=== PATIENT | female | born 1985 | race Caucasian/White ===

== ENCOUNTER → 2023-07-21 10:45 | Outpatient (BNV) | payer OTHER, SELFPAY | PROVIDERS: Visit Provider Psychiatry & Neurology Psychiatry | DX: F32.2 Major depressive disorder, single episode, severe without psychotic features (principal) | CPT/HCPCS: 90792 ==

== ENCOUNTER 2023-08-03 10:00 | Outpatient (RCR) | payer OTHER, SELFPAY ==
[2023-07-20 12:56] VITALS: BP 97/75; PULSE 73; TEMP 36.6
[2023-07-20 13:07] VITALS: BMI 49.1
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
--- NOTE | 2023-07-21 13:24 | PC.NURSE ---
Addendum entered by Janine Morales RN 07/21/23 15:05: Spoke to Cristiana LUCAS from patient's PCP's office of Dr Darell Valencia whom patient has a 3:45 appointment with today 07/21/23 and reviewed the following information to review with the doctor. 1. Hx of fainting x2 in the past 2 weeks. 2. Hx of Grand Mal Seizures. 3. Taken off Lamictal 2 years ago. 4. Question medication side effects. 4. Question need for neurology consult. Original Note: I called patient's doctors office and left a message for them to call me back. Patient has an appointment today at 3:43 with her PCP. I gave patient a list of points to bring up with her doctor at her appointment with attached medication list. 1. Hx of fainting x2 in the past 2 weeks. 2. Hx of Grand Mal Seizures. 3. Taken off Lamictal 2 years ago. 4. Question medication side effects. 4. Question need for neurology consult.
[2023-07-21 13:32] VITALS: BP 100/75; PULSE 71
--- NOTE | 2023-07-21 16:55 | HO.PHP ---
Clients case was reviewed and opened today in treatment team.
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
--- NOTE | 2023-07-22 15:15 | PC.NURSE ---
See Dr Culver's note on 07/22/23 regarding patient's f/u appointment with her PCP on 07/21/23 regarding recent fainting episodes.
--- NOTE | 2023-08-02 16:02 | HO.PHP ---
[facility] staff followed up with Willow to see how she is doing since she presented sad within the last group. PHP staff left a VM encouraging her to contact the clinician back. PHP staff member is awaiting a call back.
== END 2023-08-03 23:59 | disposition home or self-care (01) ==
LOC: HO.PHPA 10:00
PROVIDERS: Visit Provider Psychiatry & Neurology Psychiatry
DX: F32.2 Major depressive disorder, single episode, severe without psychotic features (principal); Z79.899 Other long term (current) drug therapy
CPT/HCPCS: 90791; 90853

== ENCOUNTER 2024-11-01 19:36 | Inpatient (IN) | payer MEDICAID, SELFPAY ==
--- NOTE | ~2024-11-01 | XR_ITS ---
CLINICAL HISTORY: cough fever 2 view chest x-ray Comparison: None Findings: Left upper lobe and lingular consolidation. No pleural effusion. Heart size is normal. No acute fracture. IMPRESSION: Left lung probable pneumonia. This document has been electronically signed by: Jhony Brito MD on 11/02/2024 00:24:16
--- NOTE | ~2024-11-01 | US_ITS ---
CLINICAL HISTORY: Pneumonia , elevated LFTs evaluate for biliary dis US abdomen limited Comparison: None Findings: The visualized pancreas is normal. The aorta and inferior vena cava are normal caliber. The liver is normal in size and echotexture, with a uniformly echogenic rounded 10 mm lesion consistent with a hemangioma within the right lobe. There is no intrahepatic bile duct dilatation. The common duct is 5 mm in diameter. The gallbladder demonstrates mild wall thickening at 5 mm. Trace pericholecystic fluid. There is no sonographic Washington sign. The main portal vein is antegrade. The right kidney is 11.3 cm in length. 7 mm cyst noted. No ascites. IMPRESSION: Mild gallbladder wall thickening with trace pericholecystic fluid. No sonographic Washington's. No gallstone identified. If there is concern for acute cholecystitis, a HIDA may be helpful. Benign hepatic hemangioma. This document has been electronically signed by: Sebastián Sr MD on 11/02/2024 10:43:02
[2024-11-01 19:57] VITALS: BP 110/58; PULSE 70; RESP 20; TEMP 36.8; O2SAT 100; BMI 20.8
[2024-11-01 20:04] VITALS: BP 106/65; PULSE 99; O2SAT 99
[2024-11-01 21:25] LABS: Influenza A PCR NEGATIVE (Negative); Influenza B PCR NEGATIVE (Negative); Resp Syncy Virus RNA Qual PCR NEGATIVE (Negative); SARS COV2 PCR INHOUSE NEGATIVE (Negative)
--- NOTE | 2024-11-01 22:22 | ED.GENADULT ---
HPI - General Adult General Chief complaint: General Medical Stated complaint: flu like symptoms, dx pneumonia brenden,stiff neck Time Seen by Provider: 11/01/24 22:07 Related Data Home Medications ?Medication ?Instructions ?Recorded ?Confirmed alprazolam 0.5 mg tablet 0.5 mg PO Q8H PRN Sleep 07/20/23 11/02/24 dextroamphetamine-amphetamine ER 1 cap PO DAILY 07/20/23 11/02/24 20 mg 24hr capsule,extend release doxepin 25 mg capsule 25 mg PO BEDTIME 07/20/23 11/02/24 duloxetine 20 mg capsule,delayed 40 mg PO QAM 07/20/23 11/02/24 release dextromethorphan 20 mg-quinidine 1 cap PO BID 11/02/24 11/02/24 10 mg capsule (Nuedexta) Previous Rx's ?Medication ?Instructions ?Recorded azithromycin 250 mg tablet 250 mg PO DAILY 7 days #4 tabs 11/02/24 cefpodoxime 200 mg tablet 200 mg PO Q12H 7 days #14 tabs 11/02/24 ciprofloxacin 0.3 %-dexamethasone 4 drp otic (ears) Q12H 7 days #7.5 11/02/24 0.1 % ear drops,suspension mL magnesium 250 mg tablet 250 mg PO DAILY 4 days #4 tabs 11/02/24 Allergies Allergy/AdvReac Type Severity Reaction Status Date / Time codeine Allergy Vomiting Verified 11/01/24 19:59 promethazine [From Phenergan] AdvReac Restless Verified 07/20/23 13:20 legs PMFSH Past Medical History Medical History History of seizures History of head injury Migraines Fainting Surgical History H/O adenoidectomy Hx of tonsillectomy H/O tubal ligation History of appendectomy Social History Social History Household Members: Spouse Household Members Other:: 3 children Housing: House Do you presently have visiting nurse or other home services: No Patient Tobacco Use Status: Former Tobacco user e-Cigarette/Vaping Use: Currently Using Second Hand Smoke Exposure: No Substance Use Type: Marijuana service: No Physical Exam ED Vital Signs: Vital Signs - 24 hr 11/01/24 19:57 11/01/24 22:25 11/02/24 00:01 Temperature 98.2 F 98.5 F 99 F Pulse Rate 70 65 70 Respiratory Rate 20 20 20 Blood Pressure 110/58 L 104/54 L 109/67 Pulse Oximetry 100 98 97 Oxygen Delivery Method Room Air Room Air Room Air 11/02/24 01:19 11/02/24 04:05 11/02/24 05:05 Temperature 99.5 F 98.1 F Pulse Rate 70 69 71 Respiratory Rate 18 16 16 Blood Pressure 107/54 L 101/61 106/59 L Pulse Oximetry 98 99 99 Oxygen Delivery Method Room Air Room Air Room Air 11/02/24 08:22 Temperature 98 F Pulse Rate 75 Respiratory Rate 16 Blood Pressure 95/55 L Pulse Oximetry 99 Oxygen Delivery Method Room Air BMI result Body Mass Index 20.8 Medications Administered Generic Name Dose Route Start Last Admin Trade Name Freq PRN Reason Stop Dose Admin Acetaminophen/Butalbital/Caffeine 1 tab 11/02/24 20:05 11/03/24 12:20 Butalb/Acetamin/Caff 50/325/40 Tablet PO 1 tab Q4H PRN Administration Migraine Headache Amphetamine/Dextroamphetamine 20 mg 11/03/24 09:00 11/03/24 09:06 Dextroamphetamine/Amphetamine Xr 10 Mg Cap.Er.24h PO 20 mg DAILY BETO Administration Doxepin HCl 25 mg 11/02/24 21:00 11/02/24 21:42 Doxepin Hcl 25 Mg Capsule PO Not Given BEDTIME BETO Duloxetine HCl 40 mg 11/03/24 09:00 11/03/24 09:06 Duloxetine Hcl 20 Mg Capsule.Dr PO 40 mg DAILY BETO Administration Hydromorphone HCl 0.5 mg 11/02/24 15:39 11/03/24 11:56 Hydromorphone Hcl 0.5 Mg/0.5 Ml Syringe IVPUSH 0.5 mg Q4H PRN Administration Pain, Severe (Pain Scale 7-10) Protocol Levofloxacin 750 mg in 150 mls @ 100 mls/hr 11/03/24 08:00 11/03/24 10:47 Levaquin IV Infused Q24H BETO Infusion Metoclopramide HCl 10 mg 11/02/24 20:05 11/03/24 10:37 Metoclopramide Hcl 10 Mg/2 Ml Vial IVPUSH 10 mg Q4H PRN Administration Nausea and Vomiting Sodium Chloride 3 ml 11/02/24 16:00 11/03/24 09:05 0.9 % Sodium Chloride Flush 3 Ml Syringe IVFLUSH 3 ml QSHIFT BETO Administration Discontinued Medications Generic Name Dose Route Start Last Admin Trade Name Freq PRN Reason Stop Dose Admin Azithromycin 500 mg 11/02/24 00:31 11/02/24 00:39 Azithromycin 500 Mg Tablet PO 11/02/24 00:32 500 mg ONCE ONE Administration Ceftriaxone Sodium 1 gm 11/02/24 00:31 11/02/24 00:39 Ceftriaxone Sodium 1 Gm Vial IVPUSH 11/02/24 00:32 1 gm ONCE ONE Administration Diphenhydramine HCl 25 mg 11/02/24 11:13 11/02/24 11:24 Diphenhydramine Hcl 50 Mg/Ml Vial IVPUSH 11/02/24 11:14 25 mg ONCE ONE Administration Hydromorphone HCl 1 mg 11/02/24 08:02 11/02/24 08:26 Hydromorphone Hcl 1 Mg/Ml Syringe IVPUSH 11/02/24 08:03 1 mg ONCE STA Administration Protocol Hydromorphone HCl 1 mg 11/02/24 10:27 11/02/24 10:46 Hydromorphone Hcl 1 Mg/Ml Syringe IVPUSH 11/02/24 10:28 1 mg ONCE ONE Administration Protocol Sodium Chloride 1,000 mls @ 999 mls/hr 11/01/24 23:15 11/02/24 01:42 Ns IV 11/02/24 00:15 Infused .Q1H1M BETO Infusion Potassium Chloride/Sodium Chloride 20 meq in 1,000 mls @ 150 mls/hr 11/01/24 23:15 11/02/24 06:39 Kcl 20 Meq In 0.45% Sod IVCONT Infused .Q6H40M BETO Infusion Acetaminophen 1,000 mg in 100 mls @ 400 mls/hr 11/01/24 23:03 11/02/24 00:15 Ofirmev IV 11/01/24 23:17 Infused ONCE ONE Infusion Magnesium Sulfate 2 gm in 50 mls @ 25 mls/hr 11/01/24 23:08 11/02/24 01:53 Magnesium Sulfate/H2o IV 11/02/24 01:07 Infused ONCE ONE Infusion Levofloxacin 750 mg in 150 mls @ 100 mls/hr 11/02/24 08:05 11/03/24 09:15 Levaquin IV 11/02/24 09:34 Infused ONCE ONE Infusion Potassium Chloride/Sodium Chloride 40 meq in 1,000 mls @ 125 mls/hr 11/02/24 09:30 11/02/24 19:30 Kcl 40 Meq In 0.9 % Sodium Chl IV 11/02/24 17:29 Infused .Q8H BETO Infusion Lactated Ringer's 500 mls @ 500 mls/hr 11/02/24 22:45 11/03/24 01:40 Lr IV 11/02/24 23:44 Infused .Q1H BETO Infusion Ketorolac Tromethamine 15 mg 11/02/24 02:31 11/02/24 02:33 Ketorolac Tromethamine 15 Mg/Ml Vial IVPUSH 11/02/24 02:32 15 mg ONCE ONE Administration Metoclopramide HCl 10 mg 11/02/24 11:13 11/02/24 11:24 Metoclopramide Hcl 10 Mg/2 Ml Vial IVPUSH 11/02/24 11:14 10 mg ONCE ONE Administration Neomycin/Polymyxin/Hydrocortisone 3 drop 11/01/24 23:03 11/02/24 00:36 Neomycin/Polymyxin/Hc Otic Cristiane 10 Ml Drpbtl EAR-BOTH 11/01/24 23:04 Not Given ONCE ONE Ondansetron HCl 4 mg 11/01/24 23:03 11/01/24 23:48 Ondansetron Hcl 4 Mg/2 Ml Vial IVPUSH 11/01/24 23:04 4 mg ONCE ONE Administration Ondansetron HCl 4 mg 11/02/24 09:29 11/02/24 10:46 Ondansetron Hcl 4 Mg/2 Ml Vial IVPUSH 11/02/24 09:30 4 mg ONCE ONE Administration Medical Decision Making Medical Decision Making MDM Narrative: 39-year-old female with bilateral ear pain diagnosis of pneumonia starting about 2 days ago with cough malaise myalgias. She has some sharp upper back discomfort and generalized muscle aching. She has been nauseous with nonbloody nonbilious vomiting. She looks dehydrated and mildly pale and mildly ill but not toxic. She has a nonfocal neuro exam and a soft nontender abdomen. Her left ear is rather unremarkable including the TM however the right ear has tender slightly erythematous canal and a significant erythematous tympanic membrane. She has no dental pain mastoid tenderness or significant erythema or tenderness of the external ear structures. Her neck is soft there is no masses or lymphadenopathy. The patient was found to be hypokalemic initially 2.8 and hypomagnesemic. Both of these were initially repleted intravenously we have prescribed her oral electrolyte repletion for home. Patient was diagnosed 2 days ago with pneumonia she has been on Augmentin she has not had any improvement in her clinical respiratory symptoms but she is not hypoxic and has no labored breathing. I do not think this otherwise healthy patient needs admission but I will escalate her antibiotics to cefpodoxime and azithromycin 1st dose of cephalosporin and 500 mg azithromycin given here in the ED. Patient was hydrated and we will send her home after ED treatment closely PCP follow up ENT if needed 11/02/2024, ,Dr. Jeronimo Macedo's notes 08:06 I assumed care of this patient from my colleague, Dr. Ephraim Salas at 02:00 hours I re-evaluated the patient and she states she was not feeling better. She was having significant left-sided pleuritic chest pain. The patient's chest x-ray did reveal a significant left upper lobe/lingular consolidation which explains her chest pain. She was treated last night with Toradol with no significant relief for pain therefore I ordered Dilaudid 1 mg IV. My examination of the patient was ears I do not think that you has otitis externa and she may have left otitis media. I did discuss this with her and I do not think that she needs topical drops at this time. Patient did have a low potassium and low magnesium which was repleted IV. The patient also had significant elevation in her LFTs therefore I will order a right upper quadrant ultrasound. I am concerned that the patient might have Legionella. I will obtain repeat BMP, magnesium and also order blood cultures x2, lactic acid, Legionella studies. 09:33 Patient's magnesium normalized. Potassium improved to 3.0. My ordered normal saline with 40 mEq of potassium at 125 mL/hr to further replete her potassium. The patient did have an episode of vomiting when he was in the room and I ordered Zofran 4 mg IV. I did discuss the patient's presentation over tiger text with the covering hospitalist, physician certified anesthesiologist assistant [place] and the patient will be admitted to the hospitalist service for further treatment. Differential Diagnosis Pneumonia otitis media, otitis externa, mastoiditis, pleural effusion, empyema, electrolyte derangement, myalgia Admission/Observation Consideration of admission/observation: Escalation of care including admission/observation considered Lab Data 11/03/24 05:39 11/03/24 05:39 Labs: Lab Results 11/01/24 11/01/24 11/02/24 Range/Units 20:38 22:33 00:00 WBC 6.6 (4.8-10.8) X10*3/uL RBC 3.64 L (4.20-5.50) X10*6/uL Hgb 11.3 L (12.0-16.0) g/dl Hct 33.7 L (37.0-47.0) % MCV 92.6 (80.0-98.0) fL MCH 31.0 (27.0-33.0) pg MCHC 33.5 (31.0-35.0) g/dl RDW 12.7 (11.0-16.0) % Plt Count 206 (160-400) X10*3/uL MPV 9.8 (9.4-12.3) fL Immature Gran % (Auto) 0.6 H (0.0-0.4) % Neut % (Auto) 80.5 H (45-73) % Lymph % (Auto) 10.8 L (20-40) % [place] % (Auto) 5.9 (2-11) % Eos % (Auto) 1.7 (0-4) % Baso % (Auto) 0.5 (0-2) % Lymph # (Auto) 0.7 L (1.2-4.9) X10*3/uL [place] # (Auto) 0.4 (0.1-1.2) X10*3/uL Eos # (Auto) 0.1 (0.0-0.4) X10*3/uL Baso # (Auto) 0.0 (0.0-0.2) X10*3/uL Abs Immat Gran (auto) 0.04 H (0.00-0.03) X10*3/uL Absolute Neuts (auto) 5.4 (2.0-8.3) x10*3/uL Absolute Nucleated RBC 0.000 (0.0-0.012) X10*3/uL Nucleated RBC % (auto) 0.0 (0.0-0.2) /100WBC Sodium 143 (135-145) mmol/L Potassium 2.8 L* (3.3-5.1) mmol/L Chloride 110 H (96-108) mmol/L Carbon Dioxide 27 (22-29) mmol/L Anion Gap 9 L (12-20) BUN 7 L (9-16) mg/dL Creatinine 0.67 (0.5-1.4) mg/dL Estim Creat Clear Calc 84.2 Estimated GFR > 60 Random Glucose 111 (60-115) mg/dL Lactic Acid (0.5-2.0) mmol/L Calcium 8.5 (8.4-10.2) mg/dL Magnesium 1.5 L (1.6-2.6) mg/dL Total Bilirubin 0.4 (0.0-1.0) mg/dL AST 193 H (5-31) U/L ALT 292 H (0-31) U/L Alkaline Phosphatase 271 H (39-117) U/L Total Protein 5.9 L (6.5-8.0) g/dL Albumin 3.2 L (3.5-5.0) g/dL Urine Color Dark Yellow Urine Appearance Clear Urine pH 7.0 (5.0-9.0) Ur Specific [place] >= 1.030 H (1.005-1.025) Urine Protein 30 (1+) H (Neg-Trace) mg/dL Urine Glucose (UA) Negative (Negative) mg/dL Urine Ketones Trace (Negative) mg/dL Urine Blood Negative (Negative) Urine Nitrite Negative (Negative) Ur Leukocyte Esterase Trace H (Negative) Urine RBC 0-2 (0-2) /HPF Urine WBC 0-5 (0-5) /HPF Ur Squamous Epith Cells 0-2 (0-2) /HPF Calcium Oxalate Crystal Present Urine Bacteria None Seen (None Seen) Hyaline Casts 0-2 (0-2) /LPF Influenza Type A (PCR) NEGATIVE (Negative) Influenza Type B (PCR) NEGATIVE (Negative) RSV RNA Qual (PCR) NEGATIVE (Negative) SARS-CoV-2 RNA (RT-PCR) NEGATIVE (Negative) 11/02/24 Range/Units 08:39 WBC (4.8-10.8) X10*3/uL RBC (4.20-5.50) X10*6/uL Hgb (12.0-16.0) g/dl Hct (37.0-47.0) % MCV (80.0-98.0) fL MCH (27.0-33.0) pg MCHC (31.0-35.0) g/dl RDW (11.0-16.0) % Plt Count (160-400) X10*3/uL MPV (9.4-12.3) fL Immature Gran % (Auto) (0.0-0.4) % Neut % (Auto) (45-73) % Lymph % (Auto) (20-40) % [place] % (Auto) (2-11) % Eos % (Auto) (0-4) % Baso % (Auto) (0-2) % Lymph # (Auto) (1.2-4.9) X10*3/uL [place] # (Auto) (0.1-1.2) X10*3/uL Eos # (Auto) (0.0-0.4) X10*3/uL Baso # (Auto) (0.0-0.2) X10*3/uL Abs Immat Gran (auto) (0.00-0.03) X10*3/uL Absolute Neuts (auto) (2.0-8.3) x10*3/uL Absolute Nucleated RBC (0.0-0.012) X10*3/uL Nucleated RBC % (auto) (0.0-0.2) /100WBC Sodium 139 (135-145) mmol/L Potassium 3.0 L (3.3-5.1) mmol/L Chloride 111 H (96-108) mmol/L Carbon Dioxide 23 (22-29) mmol/L Anion Gap 8 L (12-20) BUN 7 L (9-16) mg/dL Creatinine 0.55 (0.5-1.4) mg/dL Estim Creat Clear Calc 102.6 Estimated GFR > 60 Random Glucose 101 (60-115) mg/dL Lactic Acid 1.7 (0.5-2.0) mmol/L Calcium 8.0 L (8.4-10.2) mg/dL Magnesium 2.0 (1.6-2.6) mg/dL Total Bilirubin (0.0-1.0) mg/dL AST (5-31) U/L ALT (0-31) U/L Alkaline Phosphatase (39-117) U/L Total Protein (6.5-8.0) g/dL Albumin (3.5-5.0) g/dL Urine Color Urine Appearance Urine pH (5.0-9.0) Ur Specific [place] (1.005-1.025) Urine Protein (Neg-Trace) mg/dL Urine Glucose (UA) (Negative) mg/dL Urine Ketones (Negative) mg/dL Urine Blood (Negative) Urine Nitrite (Negative) Ur Leukocyte Esterase (Negative) Urine RBC (0-2) /HPF Urine WBC (0-5) /HPF Ur Squamous Epith Cells (0-2) /HPF Calcium Oxalate Crystal Urine Bacteria (None Seen) Hyaline Casts (0-2) /LPF Influenza Type A (PCR) (Negative) Influenza Type B (PCR) (Negative) RSV RNA Qual (PCR) (Negative) SARS-CoV-2 RNA (RT-PCR) (Negative) Independent Interpretation I performed an independent interpretation of an: EKG Interpretation: Sinus rhythm, no ischemic changes Radiology Impression Discussion of test interpretation with radiology: I have reviewed the radiologist's reading. Independent Historian Clinical information obtained from an independent historian. History obtained from or confirmed by: Friend Critical Care Time Critical Care Time Critical Care Time: Yes Total Critical Care Time: 45 Attestation: Critical Care: The patient was critically ill with a high probability of imminent or life threatening deterioration. I spent greater than 30 minutes of discontinuous time evaluating the patient,delivering critical care at the bedside, discussing and evaluating pertinent data with consultants. Critical care time does not include time spent performing separately billable procedures or teaching. Total time spent performing critical care was 45 minutes. Discharge Plan Discharge Clinical Impression: Elevated liver function tests, Pleuritic chest pain Pneumonia Qualifiers: Pneumonia type: due to unspecified organism Laterality: left Lung location: upper lobe of lung Qualified Code(s): J18.9 - Pneumonia, unspecified organism Otitis media Qualifiers: Chronicity: acute Laterality: left Recurrence: non-recurrent Spontaneous tympanic membrane rupture: without spontaneous rupture Patient Disposition: Admitted As Inpatient Interventions: Admission Worksheet (ED) Last Done: 11/02/24 18:29 Discharge Date/Time: 11/02/24 20:59
[2024-11-01 22:25] VITALS: BP 104/54; PULSE 65; RESP 20; TEMP 36.9; O2SAT 98
[2024-11-01 22:39] LABS: MANUAL DIFF FLAG NO
[2024-11-01 22:40] LABS: Basophils Percent Auto 0.5 % (0-2); Eosinophils Absolute Auto 0.1 X10*3/uL (0.0-0.4); Eosinophils Percent Auto 1.7 % (0-4); Hematocrit 33.7 % (37.0-47.0); Hemoglobin 11.3 g/dl (12.0-16.0); Imm Gran Abs Auto 0.04 X10*3/uL (0.00-0.03); Imm Gran Pct Auto 0.6 % (0.0-0.4); Lymphocytes Absolute Auto 0.7 X10*3/uL (1.2-4.9); Lymphocytes Percent Auto 10.8 % (20-40); Mean Corpuscular HGB Conc 33.5 g/dl (31.0-35.0); Mean Corpuscular Volume 92.6 fL (80.0-98.0); Mean Platelet Volume 9.8 fL (9.4-12.3); Monocytes Absolute Auto 0.4 X10*3/uL (0.1-1.2); Monocytes Percent Auto 5.9 % (2-11); Neutrophils Absolute Auto 5.4 x10*3/uL (2.0-8.3); Neutrophils Percent Auto 80.5 % (45-73); Platelet Count 206 X10*3/uL (160-400); Red Blood Count 3.64 X10*6/uL (4.20-5.50); Red Cell Distribution Width 12.7 % (11.0-16.0); White Blood Count 6.6 X10*3/uL (4.8-10.8)
--- NOTE | 2024-11-01 23:03 | ECG_ITS ---
Test Reason : LOW POTASSIUM Blood Pressure : */* mmHG Vent. Rate : 66 BPM Atrial Rate : 66 BPM P-R Int : 172 ms QRS Dur : 72 ms QT Int : 388 ms P-R-T Axes : -2 62 52 degrees QTcB Int : 406 ms Normal sinus rhythm Normal ECG No previous ECGs available Referred By: Ephraim Augustine Electronically Signed By: NOEL ESPINOSA MD
[2024-11-01 23:06] LABS: Alanine Aminotransferase 292 U/L (0-31); Albumin Level 3.2 g/dL (3.5-5.0); Alkaline Phosphatase 271 U/L (39-117); Anion Gap 9 (12-20); Aspartate Amino Transferase 193 U/L (5-31); Bilirubin Total 0.4 mg/dL (0.0-1.0); Blood Urea Nitrogen 7 mg/dL (9-16); Calcium 8.5 mg/dL (8.4-10.2); Carbon Dioxide 27 mmol/L (22-29); Chloride 110 mmol/L (96-108); Creatinine Clr Calc Pharmacy 84.2; Estimated Glomerular Filt Rate > 60; Glucose Random 111 mg/dL (60-115); Magnesium 1.5 mg/dL (1.6-2.6); Potassium 2.8 mmol/L (3.3-5.1); Sodium 143 mmol/L (135-145); Total Protein 5.9 g/dL (6.5-8.0)
--- NOTE | 2024-11-01 23:27 | PC.NURSE ---
assumed care of pt at 23:15
[2024-11-01] MEDS: Magnesium Sulfate/H2O 2 GM/50 ML PIGGYBACK IV (23:48)
[2024-11-01] MEDS: ondansetron HCL 4 MG/2 ML VIAL IVPUSH (23:48)
[2024-11-01] MEDS: KCl 20 mEq in 0.45% Sod 20 MEQ/1,000 ML IV.SOLN 150 MEQ IVCONT (23:48)
[2024-11-01] MEDS: Acetaminophen 1,000 MG/100 ML PIGGYBACK 400 MG IV (23:48)
[2024-11-01] MEDS: 0.9 % Sodium Chloride 1,000 ML 999 ML IV (23:49)
[2024-11-02] VITALS (11 sets, daily range): BP systolic 95–114; BP diastolic 54–67; PULSE 69–105; RESP 14–20; TEMP 36.5–37.6; O2SAT 96–99
--- NOTE | 2024-11-02 | ECG_ITS ---
Test Reason : cp-repeat Blood Pressure : */* mmHG Vent. Rate : 64 BPM Atrial Rate : 64 BPM P-R Int : 170 ms QRS Dur : 66 ms QT Int : 422 ms P-R-T Axes : 7 49 26 degrees QTcB Int : 435 ms Normal sinus rhythm Normal ECG When compared with ECG of 01-Nov-2024 23:25, No significant change was found Referred By: Ephraim Augustine Electronically Signed By: NOEL ESPINOSA MD
[2024-11-02 00:12] LABS: Appearance Urine Clear; Color Urine Dark Yellow; Glucose Urine UA Negative (Negative); Leukocyte Esterase Urine Trace (Negative); Nitrite Urine Negative (Negative); Specific Gravity - Urine >= 1.030 (1.005-1.025); UMIC TRIGGER UACC YES; Urine Blood Negative (Negative); Urine Ketones Trace mg/dL (Negative); Urine Protein 30 (1+) mg/dL (Neg-Trace)
[2024-11-02 00:30] LABS: Bacteria Urine None Seen (None Seen); Calcium Oxalate Crystals Urine Present; Hyaline Casts Urine 0-2 /LPF (0-2); RBC Urine 0-2 /HPF (0-2); Squamous Epithelial Cell Urine 0-2 /HPF (0-2); WBC Urine 0-5 /HPF (0-5)
[2024-11-02] MEDS: cefTRIAXone sodium 1 GM VIAL IVPUSH (00:39)
[2024-11-02] MEDS: Azithromycin 500 MG TABLET PO (00:39)
[2024-11-02] MEDS: Ketorolac Tromethamine 15 MG/ML VIAL IVPUSH (02:33)
--- NOTE | 2024-11-02 05:32 | PC.NURSE ---
plan to discharge patient after potassium infusion is complete
[2024-11-02] MEDS: HYDROmorphone HCl 1 MG/ML SYRINGE IVPUSH ×2 (08:26→10:46)
--- NOTE | 2024-11-02 08:26 | PC.NURSE ---
Pt c/o left sided lung pain worse with deep breatg, also left ear pain. has been ambulatory w/o diff but moves slowly. Skin PWN. unlabored resp with ambulation and at rest.
[2024-11-02] MEDS: levoFLOXacin/D5W 750 MG/150 ML PIGGYBACK 100 MG IV (08:51)
[2024-11-02 09:06] LABS: Anion Gap 8 (12-20); Blood Urea Nitrogen 7 mg/dL (9-16); Carbon Dioxide 23 mmol/L (22-29); Chloride 111 mmol/L (96-108); Creatinine Clr Calc Pharmacy 102.6; Estimated Glomerular Filt Rate > 60; Glucose Random 101 mg/dL (60-115); Sodium 139 mmol/L (135-145)
[2024-11-02 09:07] LABS: Lactic Acid 1.7 mmol/L (0.5-2.0)
[2024-11-02] MEDS: ondansetron HCL 4 MG/2 ML VIAL IVPUSH (10:46)
--- NOTE | 2024-11-02 11:07 | PC.NURSE ---
dry heaving frequently. reglan requested by this RN.
--- NOTE | 2024-11-02 11:15 | PM.IMHP ---
History of Present Illness Date of Service: 11/02/24 Attending physician on admission: Dheeraj Cheema Chief Complaint: Cough, fever, malaise Pt is a 39-year-old female with a PMH significant for?migraines, seizure disorder no longer on meds, recurrent syncope, pseudobulbar affect, and mood disorder who presents to the ED with?multiple complaints, including fever, productive cough, myalgias, ear pain, and general malaise. Pt reports symptoms began last week on when she experienced headache, body aches, fever, chills, and a ?stuffy head?. Over the weekend pt developed migraines, bilateral ear pain, nausea, vomiting, and some diarrhea. Patient's highest temperature was a reported 104.7 at home. Pt took Tylenol and Motrin. On Tuesday pt presented to urgent care after symptoms continue to worsen and was diagnosed with pneumonia and bilateral otitis externa, and was started on azithromycin, cefpodoxime, and ciprofloxacin otic drops. Pt began taking p.o. antibiotics, but did not yet start ear drops. Despite being on antibiotics patient's symptoms worsened with increased SOB, nausea, and left-sided chest pain associated with breathing and cough, which prompted her visit to the ED. pt has had reduced p.o. intake during this time. Has a hx of vaping and smoking marijuana, but denies alcohol use or IVDU. Pt also states has not had a seizure since 2007, and is no longer on any medications In the ED pt with mildly elevated temp 99.5 and soft BP as low as 95/55. Labs were significant for normocytic anemia of 11.3/33.7, potassium 2.8, magnesium 1.7, AST 193, ALT 292, and alk-phos 271. No leukocytosis. Lactic acid WNL at 1.7. UA negative for UTI. Tested negative for flu, COVID, RSV. CXR showed left lung upper lobe and lingular consolidation likely pneumonia. RUQ abdominal U/S showed mild call bladder wall thickening without sonographic Washington's and no gallstone identified. Also showed benign hepatic hemangioma. EKG demonstrated normal sinus rhythm without evidence of significant ST elevations or depressions. Pt was treated with ondansetron, acetaminophen, ketorolac, hydromorphone, Mag sulfate, IVF, ceftriaxone, azithromycin, and levofloxacin. Pt will be admitted to the hospital for treatment and further evaluation of community-acquired pneumonia that failed outpatient therapy and requires IV antibiotics. Review of Systems Review of Systems: Negative except for that which is stated in the HPI. [facility] Medical History History of seizures History of head injury Migraines Fainting Surgical History H/O adenoidectomy Hx of tonsillectomy H/O tubal ligation History of appendectomy Social History Household Members: Significant Other, Family and Children Patient Tobacco Use Status: Former Tobacco user Smoked in Last 30 Days: No Use of substances other than those prescribed or required for medical reasons: No Advance Directives: No Advance Directives Information Provided: No Meds Allergies Allergy/AdvReac Type Severity Reaction Status Date / Time codeine Allergy Vomiting Verified 11/01/24 19:59 promethazine [From Phenergan] AdvReac Restless Verified 07/20/23 13:20 legs Active Medications: Current Medications Potassium Chloride/Sodium Chloride (Kcl 40 Meq In 0.9 % Sodium Chl) 40 meq in 1,000 mls @ 125 mls/hr IV .Q8H BETO Stop: 11/02/24 17:29 Home Medications ?Medication ?Instructions ?Recorded ?Confirmed ?Last Taken ?Type alprazolam 0.5 mg tablet 0.5 mg PO Q8H PRN Sleep 07/20/23 11/02/24 Unknown History dextroamphetamine-amphetamine ER 1 cap PO DAILY 07/20/23 11/02/24 07/20/23 07:00 History 20 mg 24hr capsule,extend release doxepin 25 mg capsule 25 mg PO BEDTIME 07/20/23 11/02/24 07/19/23 23:30 History duloxetine 20 mg capsule,delayed 40 mg PO QAM 07/20/23 11/02/24 07/20/23 07:00 History release 2 tabs dextromethorphan 20 mg-quinidine 1 cap PO BID 11/02/24 11/02/24 Unknown History 10 mg capsule (Nuedexta) Physical Exam Vital Signs and Narrative: Vital Signs: Last Vital Signs Temp 98 F 11/02/24 08:22 Pulse 90 11/02/24 10:20 Resp 18 11/02/24 10:20 BP 114/65 11/02/24 10:20 Pulse Ox 99 11/02/24 10:20 O2 Del Method Room Air 11/02/24 10:20 BMI result Body Mass Index 20.8 Constitutional: Alert, in no acute distress. Looks uncomfortable. Mental Status: Oriented to person, place and time. Eyes: Pupils are equal, round, and reactive to light. Ear, Nose, and Throat: Oropharynx clear, mucous membranes moist. External ear canals non-erythematous bilaterally. Left TM with some bulging and mild erythematous. No loss of landmarks. Respiratory: Clear to auscultation bilaterally. No wheezing, rales, or rhonchi. Cardiovascular: S1, S2 regular. No murmurs, rubs, or gallops. Gastrointestinal: Abdomen soft, non-distended, mild central tenderness. Normal bowel sounds. Neurologic: Cranial nerves II-XII are grossly intact bilaterally. No focal neurological deficits. Moves all extremities spontaneously. Skin: Warm, dry. Extremities: No edema. Psychiatric: Normal mood and affect. Results Labs 11/01/24 22:33 11/02/24 08:39 Labs: Laboratory Results - last 24 hr 11/01/24 11/01/24 11/02/24 20:38 22:33 00:00 MCV 92.6 MCH 31.0 MCHC 33.5 RDW 12.7 Plt Count 206 MPV 9.8 Immature Gran % (Auto) 0.6 H Neut % (Auto) 80.5 H Lymph % (Auto) 10.8 L Walker % (Auto) 5.9 Eos % (Auto) 1.7 Baso % (Auto) 0.5 Lymph # (Auto) 0.7 L Walker # (Auto) 0.4 Eos # (Auto) 0.1 Baso # (Auto) 0.0 Abs Immat Gran (auto) 0.04 H Absolute Neuts (auto) 5.4 Absolute Nucleated RBC 0.000 Nucleated RBC % (auto) 0.0 Anion Gap 9 L Estim Creat Clear Calc 84.2 Estimated GFR > 60 Random Glucose 111 Lactic Acid Calcium 8.5 Magnesium 1.5 L Total Bilirubin 0.4 AST 193 H ALT 292 H Alkaline Phosphatase 271 H Total Protein 5.9 L Albumin 3.2 L Urine Color Dark Yellow Urine Appearance Clear Urine pH 7.0 Ur Specific [place] >= 1.030 H Urine Protein 30 (1+) H Urine Glucose (UA) Negative Urine Ketones Trace Urine Blood Negative Urine Nitrite Negative Ur Leukocyte Esterase Trace H Urine RBC 0-2 Urine WBC 0-5 Ur Squamous Epith Cells 0-2 Calcium Oxalate Crystal Present Urine Bacteria None Seen Hyaline Casts 0-2 Influenza Type A (PCR) NEGATIVE Influenza Type B (PCR) NEGATIVE RSV RNA Qual (PCR) NEGATIVE SARS-CoV-2 RNA (RT-PCR) NEGATIVE 11/02/24 08:39 MCV MCH MCHC RDW Plt Count MPV Immature Gran % (Auto) Neut % (Auto) Lymph % (Auto) Walker % (Auto) Eos % (Auto) Baso % (Auto) Lymph # (Auto) Walker # (Auto) Eos # (Auto) Baso # (Auto) Abs Immat Gran (auto) Absolute Neuts (auto) Absolute Nucleated RBC Nucleated RBC % (auto) Anion Gap 8 L Estim Creat Clear Calc 102.6 Estimated GFR > 60 Random Glucose 101 Lactic Acid 1.7 Calcium 8.0 L Magnesium 2.0 Total Bilirubin AST ALT Alkaline Phosphatase Total Protein Albumin Urine Color Urine Appearance Urine pH Ur Specific [place] Urine Protein Urine Glucose (UA) Urine Ketones Urine Blood Urine Nitrite Ur Leukocyte Esterase Urine RBC Urine WBC Ur Squamous Epith Cells Calcium Oxalate Crystal Urine Bacteria Hyaline Casts Influenza Type A (PCR) Influenza Type B (PCR) RSV RNA Qual (PCR) SARS-CoV-2 RNA (RT-PCR) Assessment and Plan (1) Pneumonia: Qualifiers: Laterality: left Lung location: upper lobe of lung Pneumonia type: due to unspecified organism Qualified Code(s): J18.9 - Pneumonia, unspecified organism Status: Acute Plan Pt is a 39-year-old female with a PMH significant for?migraines, seizure disorder no longer on meds, recurrent syncope, pseudobulbar affect, and mood disorder who presents to the ED with?multiple complaints, including fever, productive cough, myalgias, ear pain, and general malaise. Pt will be admitted to the hospital for treatment and further evaluation of community-acquired pneumonia that failed outpatient therapy and requires IV antibiotics. Community-acquired pneumonia Symptoms x8 days, diagnosed w/pneumonia at walk-in clinic 4 days ago Failed outpatient therapy on azithromycin and cefpodoxime which were started 10/29/2024 No sepsis: Fever, tachycardia, tachypnea, or leukocytosis; lactic acid WNL Will treat with levofloxacin, started 11/02/2023 Hypokalemia Initial potassium 2.8 at time of presentation In the setting of reduced GI losses from V/D and reduced p.o. intake Pt supplemented with potassium IV in the ED Follow up potassium, supplement as necessary Monitor on telemetry Hypomagnesemia magnesium 1.5 at time presentation In the setting of reduced GI losses from V/D and reduced p.o. intake Received Mag 2 g IV in the ED Follow magnesium Transaminitis AST 193, ALT 292, alk-phos 271, with T bili WNL Unclear etiology: Denies RUQ abd pain, no IVDU, alcohol use, or hx of hepatitis US nondiagnostic with mild gallbladder wall thickening and trace pericholecystic fluid, but negative Washington's sign and no gallstones visualized Pt reports has chronically elevated LFTs in the upper normal range Possibly secondary to pneumonia Will monitor LFTs and consider additional workup if warranted Acute left otitis media Pt previously diagnosed with bilateral otitis externa Prescribed ciprofloxacin/dexamethasone otic drops which she has not yet started External ear canals without significant erythema bilaterally upon exam Left TM with mild bulging and erythema Treat as above with antibiotics Seizure disorder Reports had seizures from [id number] secondary to TBI No seizures since 2007, no longer on any home meds Mood disorder Continue home meds Full Code Attending:?Dr. Cheema DVT Prophylaxis: Lovenox Pt will require a hospitalization of at least two nights for treatment of?community acquired pneumonia that failed outpatient therapy and that IV antibiotics. Quality Stroke Does the patient have a stroke diagnosis?: No VTE Prior VTE?: No VTE Risk Level:: Medical - moderate - high VTE Device Contraindication: Treatment Not Indicated VTE Drug Contraindication: N/A - Med Ordered
[2024-11-02] MEDS: Metoclopramide HCl 10 MG/2 ML VIAL IVPUSH ×2 (11:24→20:20)
[2024-11-02] MEDS: diphenhydrAMINE HCL 50 MG/ML VIAL 25 MG IVPUSH (11:24)
[2024-11-02] MEDS: KCl 40 mEq in 0.9 % Sodium Chl 40 MEQ/1,000 ML IV.SOLN 125 MEQ IV (11:25)
--- NOTE | 2024-11-02 14:52 | PHA.MEDREC ---
Addendum entered by Eyad Cee [facility] 11/02/24 14:54: She confirmed dose of duloxetine is 40 mg and alprazolam is q8h prn. Original Note: Pharmacy Consult ? Medication Reconciliation Pharmacy has completed the medication reconciliation. Spoke to patient to confirm medication list. Patient confirmed she is now taking Nuedexta twice a day and she's ok with taking generic Adderall XR capsules. She is unsure when last dose of medications was.
[2024-11-02] MEDS: 0.9 % Sodium Chloride Flush 3 ML SYRINGE IVFLUSH (16:20)
[2024-11-02] MEDS: HYDROmorphone HCl 0.5 MG/0.5 ML SYRINGE IVPUSH ×2 (16:20→20:27)
[2024-11-03] VITALS (8 sets, daily range): BP systolic 92–111; BP diastolic 51–59; PULSE 63–88; RESP 12–18; TEMP 36.2–36.8; O2SAT 94–99
[2024-11-03] MEDS: Lactated Ringers 500 ML IV (00:37)
[2024-11-03] MEDS: 0.9 % Sodium Chloride Flush 3 ML SYRINGE IVFLUSH ×3 (00:37→20:12)
[2024-11-03] MEDS: HYDROmorphone HCl 0.5 MG/0.5 ML SYRINGE IVPUSH ×5 (00:37→21:29)
[2024-11-03] MEDS: Metoclopramide HCl 10 MG/2 ML VIAL IVPUSH ×5 (01:49→21:28)
[2024-11-03] MEDS: Butalb/Acetamin/Caff 50/325/40 TABLET 1 TAB PO ×2 (01:49→12:20)
[2024-11-03 06:21] LABS: Hematocrit 33.5 % (37.0-47.0); Hemoglobin 11.2 g/dl (12.0-16.0); Mean Corpuscular HGB Conc 33.4 g/dl (31.0-35.0); Mean Corpuscular Hemoglobin 31.5 pg (27.0-33.0); Mean Corpuscular Volume 94.4 fL (80.0-98.0); Mean Platelet Volume 10.1 fL (9.4-12.3); Platelet Count 220 X10*3/uL (160-400); Red Blood Count 3.55 X10*6/uL (4.20-5.50); Red Cell Distribution Width 12.8 % (11.0-16.0); White Blood Count 6.4 X10*3/uL (4.8-10.8)
[2024-11-03 06:29] LABS: Alanine Aminotransferase 185 U/L (0-31); Albumin Level 2.9 g/dL (3.5-5.0); Alkaline Phosphatase 221 U/L (39-117); Anion Gap 11 (12-20); Aspartate Amino Transferase 79 U/L (5-31); Bilirubin Total 0.3 mg/dL (0.0-1.0); Blood Urea Nitrogen 5 mg/dL (9-16); Calcium 8.2 mg/dL (8.4-10.2); Carbon Dioxide 23 mmol/L (22-29); Chloride 109 mmol/L (96-108); Estimated Glomerular Filt Rate > 60; Glucose Random 86 mg/dL (60-115); Magnesium 1.9 mg/dL (1.6-2.6); Potassium 3.4 mmol/L (3.3-5.1); Sodium 140 mmol/L (135-145); Total Protein 5.3 g/dL (6.5-8.0)
--- NOTE | 2024-11-03 06:37 | PC.ADMIT ---
Patient arrived to med/tele with present. Patient is alert/oriented, reports feeling sick with nausea/vomiting and pain that starts at her forehead and radiates back across back of neck and back pain. Denies abdominal pain. Reports that she cant even move her head. Cannot tolerate zofran, she states it makes her vomit. Reglan ordered and administered for nausea. Patient having dry heaves. Ambulated with assistance to br and had a bowel movement that was black and grainy. She was able to tolerate fiorecet once for migraine with little relief. Dilaudid administered for pain which seems to be helping with the reglan. She is alert/oriented, SR on tele. Lungs are clear upper and dim bases with sats of 95% on room air. Blood pressure is soft but stable. No issues with urination. Patient received a 500ml LR bolus to support her hydration/kidneys d/t poor intake and vomiting. Will continue to monitor.
--- NOTE | 2024-11-03 08:04 | MHC.CM.PN ---
CM met with Patient at bedside. Patient lives in a house with her and 3 children ages 19, 12, and 9 years of age. Patient required no services nor DME [employer] and her goal is to return home/self care. CM has initiated and will follow for dc planning. PCP is Dr. Darell Valencia and will transport to home. HCP is [facility].
[2024-11-03] MEDS: levoFLOXacin/D5W 750 MG/150 ML PIGGYBACK 100 MG IV (09:05)
[2024-11-03] MEDS: DULoxetine HCl 20 MG CAPSULE.DR 40 MG PO (09:06)
[2024-11-03] MEDS: Dextroamphetamine/Amphetamine XR 10 MG CAP.ER.24H 20 MG PO (09:06)
--- NOTE | 2024-11-03 10:00 | HO.PM.IMPN ---
Subjective Subjective Date of Service: 11/03/24 Interval History: grossly unwell Physical Exam Vital Signs: Vital Signs: Last Vital Signs Temp 97.6 F 11/03/24 07:59 Pulse 70 11/03/24 07:59 Resp 14 11/03/24 07:59 BP 92/54 L 11/03/24 07:59 Pulse Ox 97 11/03/24 07:59 O2 Del Method Room Air 11/03/24 07:59 BMI result Body Mass Index 20.8 General: AO X 3, in discomfort Resp: CTA bilateral, no accessory muscles used CVS: S1,S2,RRR GI: soft, non tender, non distended Neuro: motor grossly intact, alert Psych: appropriate affect, appropriate insight Objective Data Active Medications Acetaminophen (Acetaminophen 325 Mg Tablet) 650 mg PO Q6H PRN PRN Reason: Pain, Mild 1-3,fever,headache Acetaminophen/Butalbital/Caffeine (Butalb/Acetamin/Caff 50/325/40 Tablet) 1 tab PO Q4H PRN PRN Reason: Migraine Headache Last Admin: 11/03/24 01:49 Dose: 1 tab Documented By: LORENZA Alprazolam (Alprazolam 0.5 Mg Tablet) 0.5 mg PO Q8H PRN PRN Reason: Sleep Amphetamine/Dextroamphetamine (Dextroamphetamine/Amphetamine Xr 10 Mg Cap.Er.24h) 20 mg PO DAILY [facility] Last Admin: 11/03/24 09:06 Dose: 20 mg Documented By: BLANCA Calcium Carbonate (Calcium Carbonate 750 Mg Tab.Chew) 750 mg PO Q4H PRN PRN Reason: Heartburn Doxepin HCl (Doxepin Hcl 25 Mg Capsule) 25 mg PO BEDTIME [facility] Last Admin: 11/02/24 21:42 Dose: Not Given Documented By: LORENZA Non-Admin Reason: Nausea Duloxetine HCl (Duloxetine Hcl 20 Mg Capsule.Dr) 40 mg PO DAILY [facility] Last Admin: 11/03/24 09:06 Dose: 40 mg Documented By: BLANCA Hydromorphone HCl (Hydromorphone Hcl 0.5 Mg/0.5 Ml Syringe) 0.5 mg IVPUSH Q4H PRN; Protocol PRN Reason: Pain, Severe (Pain Scale 7-10) Last Admin: 11/03/24 05:07 Dose: 0.5 mg Documented By: LORENZA Levofloxacin (Levaquin) 750 mg in 150 mls @ 100 mls/hr IV Q24H [facility] Last Admin: 11/03/24 09:05 Dose: 100 mls/hr Documented By: BLANCA Magnesium Hydroxide (Milk Of Magnesia 30 Ml Oral.Susp) 30 ml PO DAILY PRN PRN Reason: Constipation Melatonin (Melatonin 3 Mg Tablet) 6 mg PO BEDTIME PRN PRN Reason: Insomnia Metoclopramide HCl (Metoclopramide Hcl 10 Mg/2 Ml Vial) 10 mg IVPUSH Q4H PRN PRN Reason: Nausea and Vomiting Last Admin: 11/03/24 06:02 Dose: 10 mg Documented By: LORENZA Ondansetron HCl (Ondansetron Hcl 4 Mg/2 Ml Vial) 4 mg IVPUSH Q8H PRN PRN Reason: Nausea and Vomiting Sodium Chloride (0.9 % Sodium Chloride Flush 3 Ml Syringe) 3 ml IVFLUSH QSHIFT [facility] Last Admin: 11/03/24 09:05 Dose: 3 ml Documented By: BLANCA Labs 11/03/24 05:39 11/03/24 05:39 Labs: Laboratory Results - last 24 hr 11/03/24 05:39 MCV 94.4 MCH 31.5 MCHC 33.4 RDW 12.8 Plt Count 220 MPV 10.1 Absolute Nucleated RBC 0.000 Nucleated RBC % (auto) 0.0 Anion Gap 11 L Estim Creat Clear Calc 120.0 Estimated GFR > 60 Random Glucose 86 Calcium 8.2 L Magnesium 1.9 Total Bilirubin 0.3 AST 79 H ALT 185 H Alkaline Phosphatase 221 H Total Protein 5.3 L Albumin 2.9 L Assessment and Plan (1) Elevated liver function tests: Status: Acute Plan 39F PMH migraine, seizure disorder no longer on meds, pseudobulbar affect, recurrent syncope, mood disorder presented with fever, myalgias Pneumonia Continue levofloxacin, follow up PCR and cultures Acute hypokalemia Replace and monitor Acute hypomagnesemia Replace and monitor Transaminitis Right upper quadrant nontender, monitor Acute left otitis media Continue Levaquin History of seizure disorder No longer on meds DVT prophylaxis with Lovenox Full Code reason for continued hospitalization: Awaiting cultures Quality Stroke Does the patient have a stroke diagnosis?: No VTE Prior VTE?: No VTE Risk Level:: Medical - moderate - high VTE Device Contraindication: Treatment Not Indicated VTE Drug Contraindication: N/A - Med Ordered
[2024-11-03] MEDS: Doxepin HCl 25 MG CAPSULE PO (20:11)
[2024-11-03] MEDS: ALPRAZolam 0.5 MG TABLET PO (20:11)
[2024-11-03] MEDS: NUEDEXTA 20 EACH PO (21:28)
[2024-11-04] VITALS: BP 90/51; PULSE 78; RESP 18; TEMP 36.7; O2SAT 97
[2024-11-04 02:00] VITALS: BP 91/51; PULSE 75; RESP 18; TEMP 36.1; O2SAT 98
[2024-11-04] MEDS: Metoclopramide HCl 10 MG/2 ML VIAL IVPUSH ×5 (03:29→23:34)
[2024-11-04] MEDS: HYDROmorphone HCl 0.5 MG/0.5 ML SYRINGE IVPUSH ×5 (03:32→23:30)
--- NOTE | 2024-11-04 04:53 | PC.NURSE ---
Midnight blood pressure 90/51 Dr. Smart made aware Pt stated that her blood pressures run on low and has no symptoms. Plan of care continuing
[2024-11-04 07:03] LABS: Hematocrit 31.6 % (37.0-47.0); Hemoglobin 10.7 g/dl (12.0-16.0); Mean Corpuscular HGB Conc 33.9 g/dl (31.0-35.0); Mean Corpuscular Hemoglobin 31.4 pg (27.0-33.0); Mean Corpuscular Volume 92.7 fL (80.0-98.0); Mean Platelet Volume 9.6 fL (9.4-12.3); Platelet Count 283 X10*3/uL (160-400); Red Blood Count 3.41 X10*6/uL (4.20-5.50); Red Cell Distribution Width 12.8 % (11.0-16.0); White Blood Count 3.4 X10*3/uL (4.8-10.8)
[2024-11-04 07:56] LABS: Alanine Aminotransferase 164 U/L (0-31); Albumin Level 2.6 g/dL (3.5-5.0); Alkaline Phosphatase 179 U/L (39-117); Anion Gap 10 (12-20); Aspartate Amino Transferase 94 U/L (5-31); Bilirubin Direct < 0.2 mg/dL (0.0-0.5); Bilirubin Total 0.2 mg/dL (0.0-1.0); Blood Urea Nitrogen 6 mg/dL (9-16); Carbon Dioxide 28 mmol/L (22-29); Chloride 108 mmol/L (96-108); Creatinine Clr Calc Pharmacy 115.1; Estimated Glomerular Filt Rate > 60; Glucose Random 83 mg/dL (60-115); Magnesium 1.9 mg/dL (1.6-2.6); Potassium 2.9 mmol/L (3.3-5.1); Sodium 143 mmol/L (135-145); Total Protein 4.9 g/dL (6.5-8.0)
[2024-11-04 08:00] VITALS: BP 99/54; PULSE 81; RESP 14; TEMP 36.3; O2SAT 97
[2024-11-04] MEDS: 0.9 % Sodium Chloride Flush 3 ML SYRINGE IVFLUSH ×3 (08:21→20:39)
[2024-11-04] MEDS: levoFLOXacin/D5W 750 MG/150 ML PIGGYBACK 100 MG IV (08:25)
[2024-11-04] MEDS: Potassium Chloride ER 20 MEQ TAB.ER.PRT 40 MEQ PO (08:28)
[2024-11-04] MEDS: Dextroamphetamine/Amphetamine XR 10 MG CAP.ER.24H 20 MG PO (08:28)
[2024-11-04] MEDS: DULoxetine HCl 20 MG CAPSULE.DR 40 MG PO (08:28)
[2024-11-04] MEDS: NUEDEXTA 20 EACH PO ×2 (08:29→20:43)
--- NOTE | 2024-11-04 09:47 | HO.PM.IMPN ---
Subjective Subjective Date of Service: 11/04/24 Interval History: n/v Physical Exam Vital Signs: Vital Signs: Last Vital Signs Temp 97.4 F 11/04/24 08:00 Pulse 81 11/04/24 08:00 Resp 14 11/04/24 08:00 BP 99/54 L 11/04/24 08:00 Pulse Ox 97 11/04/24 08:00 O2 Del Method Room Air 11/04/24 08:00 BMI result Body Mass Index 20.8 General: AO X 3, nauseated Resp: CTA bilateral, no accessory muscles used CVS: S1,S2,RRR GI: soft, non tender, non distended Neuro: motor grossly intact, alert Psych: appropriate affect, appropriate insight Objective Data Active Medications Acetaminophen (Acetaminophen 325 Mg Tablet) 650 mg PO Q6H PRN PRN Reason: Pain, Mild 1-3,fever,headache Acetaminophen/Butalbital/Caffeine (Butalb/Acetamin/Caff 50/325/40 Tablet) 1 tab PO Q4H PRN PRN Reason: Migraine Headache Last Admin: 11/03/24 12:20 Dose: 1 tab Documented By: BLANCA Alprazolam (Alprazolam 0.5 Mg Tablet) 0.5 mg PO Q8H PRN PRN Reason: Sleep Last Admin: 11/03/24 20:11 Dose: 0.5 mg Documented By: CHRYSTAL Amphetamine/Dextroamphetamine (Dextroamphetamine/Amphetamine Xr 10 Mg Cap.Er.24h) 20 mg PO DAILY [facility] Last Admin: 11/04/24 08:28 Dose: 20 mg Documented By: WESLEY Calcium Carbonate (Calcium Carbonate 750 Mg Tab.Chew) 750 mg PO Q4H PRN PRN Reason: Heartburn Doxepin HCl (Doxepin Hcl 25 Mg Capsule) 25 mg PO BEDTIME [facility] Last Admin: 11/03/24 20:11 Dose: 25 mg Documented By: CHRYSTAL Duloxetine HCl (Duloxetine Hcl 20 Mg Capsule.Dr) 40 mg PO DAILY [facility] Last Admin: 11/04/24 08:28 Dose: 40 mg Documented By: WESLEY Hydromorphone HCl (Hydromorphone Hcl 0.5 Mg/0.5 Ml Syringe) 0.5 mg IVPUSH Q4H PRN; Protocol PRN Reason: Pain, Severe (Pain Scale 7-10) Last Admin: 11/04/24 08:04 Dose: 0.5 mg Documented By: WESLEY Levofloxacin (Levaquin) 750 mg in 150 mls @ 100 mls/hr IV Q24H [facility] Last Admin: 11/04/24 08:25 Dose: 100 mls/hr Documented By: WESLEY Magnesium Hydroxide (Milk Of Magnesia 30 Ml Oral.Susp) 30 ml PO DAILY PRN PRN Reason: Constipation Melatonin (Melatonin 3 Mg Tablet) 6 mg PO BEDTIME PRN PRN Reason: Insomnia Metoclopramide HCl (Metoclopramide Hcl 10 Mg/2 Ml Vial) 10 mg IVPUSH Q4H PRN PRN Reason: Nausea and Vomiting Last Admin: 11/04/24 08:20 Dose: 10 mg Documented By: WESLEY Pt Own Medication ( (Nuedexta 20 Mg)) 20 mg PO BID [facility] Last Admin: 11/04/24 08:29 Dose: 20 mg Documented By: WESLEY Sodium Chloride (0.9 % Sodium Chloride Flush 3 Ml Syringe) 3 ml IVFLUSH QSHIFT [facility] Last Admin: 11/04/24 08:21 Dose: 3 ml Documented By: WESLEY Labs 11/04/24 06:08 11/04/24 06:08 Labs: Laboratory Results - last 24 hr 11/04/24 06:08 MCV 92.7 MCH 31.4 MCHC 33.9 RDW 12.8 Plt Count 283 D MPV 9.6 Absolute Nucleated RBC 0.000 Nucleated RBC % (auto) 0.0 Anion Gap 10 L Estim Creat Clear Calc 115.1 Estimated GFR > 60 Random Glucose 83 Calcium 8.0 L Magnesium 1.9 Total Bilirubin 0.2 Direct Bilirubin < 0.2 AST 94 H ALT 164 H Alkaline Phosphatase 179 H Total Protein 4.9 L Albumin 2.6 L Microbiology Microbiology Results: Microbiology 11/02/24 08:42 Blood Culture - Preliminary Blood - Venous No growth after 24 hours. 11/02/24 08:39 Blood Culture - Preliminary Blood - Venous No growth after 24 hours. Assessment and Plan (1) Elevated liver function tests: Status: Acute Plan 39F PMH migraine, seizure disorder no longer on meds, pseudobulbar affect, recurrent syncope, mood disorder presented with fever, myalgias Pneumonia Continue levofloxacin, follow up PCR and cultures proteinuria check urine prot/cr Acute hypokalemia Replace and monitor Acute hypomagnesemia Replaced Transaminitis Right upper quadrant non-tender, monitor Acute left otitis media Continue Levaquin History of seizure disorder No longer on meds DVT prophylaxis with Lovenox Full Code reason for continued hospitalization: Awaiting cultures Quality Stroke Does the patient have a stroke diagnosis?: No VTE Prior VTE?: No VTE Risk Level:: Medical - moderate - high VTE Device Contraindication: Treatment Not Indicated VTE Drug Contraindication: N/A - Med Ordered
[2024-11-04 12:00] VITALS: BP 107/58; PULSE 87; RESP 16; TEMP 36.5; O2SAT 99
[2024-11-04 13:07] LABS: Creatinine Urine 31.31 mg/dL; Total Protein Urine Random < 7 mg/dL (<12)
[2024-11-04 16:00] VITALS: BP 99/61; PULSE 87; RESP 18; TEMP 36.3; O2SAT 98
[2024-11-04 19:20] VITALS: BP 93/46; PULSE 80; RESP 16; TEMP 36.4; O2SAT 97
[2024-11-04] MEDS: Doxepin HCl 25 MG CAPSULE PO (20:38)
[2024-11-04] MEDS: ALPRAZolam 0.5 MG TABLET PO (20:38)
[2024-11-05] VITALS: BP 109/57; PULSE 72; RESP 16; TEMP 36.6; O2SAT 99
[2024-11-05 04:00] VITALS: BP 96/52; PULSE 67; RESP 16; TEMP 36.2; O2SAT 97
[2024-11-05] MEDS: Butalb/Acetamin/Caff 50/325/40 TABLET 1 TAB PO (04:00)
[2024-11-05] MEDS: Metoclopramide HCl 10 MG/2 ML VIAL IVPUSH ×2 (04:03→08:08)
[2024-11-05] MEDS: HYDROmorphone HCl 0.5 MG/0.5 ML SYRINGE IVPUSH ×2 (06:11→10:49)
[2024-11-05 07:12] LABS: Hematocrit 34.2 % (37.0-47.0); Hemoglobin 11.5 g/dl (12.0-16.0); Mean Corpuscular HGB Conc 33.6 g/dl (31.0-35.0); Mean Corpuscular Hemoglobin 32.1 pg (27.0-33.0); Mean Corpuscular Volume 95.5 fL (80.0-98.0); Mean Platelet Volume 9.6 fL (9.4-12.3); Platelet Count 311 X10*3/uL (160-400); Red Blood Count 3.58 X10*6/uL (4.20-5.50); Red Cell Distribution Width 12.8 % (11.0-16.0); White Blood Count 4.6 X10*3/uL (4.8-10.8)
[2024-11-05 07:27] VITALS: BP 94/70; PULSE 73; RESP 16; TEMP 36.3; O2SAT 96
[2024-11-05 07:46] LABS: Alanine Aminotransferase 164 U/L (0-31); Albumin Level 2.8 g/dL (3.5-5.0); Alkaline Phosphatase 191 U/L (39-117); Aspartate Amino Transferase 84 U/L (5-31); Bilirubin Direct < 0.2 mg/dL (0.0-0.5); Bilirubin Total 0.2 mg/dL (0.0-1.0); Blood Urea Nitrogen 6 mg/dL (9-16); Calcium 8.1 mg/dL (8.4-10.2); Creatinine Clr Calc Pharmacy 112.8; Estimated Glomerular Filt Rate > 60; Glucose Random 54 mg/dL (60-115); Total Protein 5.3 g/dL (6.5-8.0)
[2024-11-05 07:48] LABS: Anion Gap 12 (12-20); Carbon Dioxide 27 mmol/L (22-29); Chloride 106 mmol/L (96-108); Potassium 3.8 mmol/L (3.3-5.1); Sodium 141 mmol/L (135-145)
[2024-11-05] MEDS: DULoxetine HCl 20 MG CAPSULE.DR 40 MG PO (08:07)
[2024-11-05] MEDS: NUEDEXTA 20 EACH PO (08:07)
[2024-11-05] MEDS: Dextroamphetamine/Amphetamine XR 10 MG CAP.ER.24H 20 MG PO (08:07)
[2024-11-05] MEDS: 0.9 % Sodium Chloride Flush 3 ML SYRINGE IVFLUSH (08:09)
[2024-11-05] MEDS: Acetaminophen 325 MG TABLET 650 MG PO (08:13)
[2024-11-05] MEDS: levoFLOXacin 750 MG TABLET PO (08:20)
[2024-11-05 08:40] LABS: Estimated Average Glucose 103 mg/dL; Hemoglobin A1c % 5.2 % (<6.0); Total Hemoglobin (HGBA1C) 3073.3442 umol/L
[2024-11-05 09:04] LABS: Thyroid Stimulating Hormone 2.25 uIU/mL (0.32-4.0)
[2024-11-05 09:05] LABS: Adenovirus PCR Not Detected (Not Detect.); Bordetella parapertussis PCR Not Detected (Not Detect.); Bordetella pertussis PCR Not Detected (Not Detect.); Chlamydia pneumoniae PCR Not Detected (Not Detect.); Coronavirus 229E PCR Not Detected (Not Detect.); Coronavirus HKU1 PCR Not Detected (Not Detect.); Coronavirus NL63 PCR Not Detected (Not Detect.); Coronavirus OC43 PCR Not Detected (Not Detect.); Human metapneumovirus PCR Not Detected (Not Detect.); Influenza A PCR Not Detected (Not Detect.); Influenza B PCR Not Detected (Not Detect.); Mycoplasma pneumoniae PCR Detected (Not Detect.); Parainfluenza 1 PCR Not Detected (Not Detect.); Parainfluenza 2 PCR Not Detected (Not Detect.); Parainfluenza 3 PCR Not Detected (Not Detect.); Parainfluenza 4 PCR Not Detected (Not Detect.); RSV PCR Not Detected (Not Detect.); Rhino/Enterovirus PCR Not Detected (Not Detect.)
[2024-11-05 09:47] LABS: SARS-CoV-2 PCR Not Detected (Not Detect.)
--- NOTE | 2024-11-05 09:56 | P.DS_ITS ---
DS: Providers Provider Date of Service: 11/05/24 Date of admission: 11/02/24 13:11 Date of discharge: 11/05/24 Primary care physician: Darell Valencia MD DS: Diagnosis Discharge Diagnosis (1) Elevated liver function tests: Status: Acute DS: Summary Hospital Course Hospital Course: from initial hpi: 39-year-old female with a PMH significant for?migraines, seizure disorder no longer on meds, recurrent syncope, pseudobulbar affect, and mood disorder who presents to the ED with?multiple complaints, including fever, productive cough, myalgias, ear pain, and general malaise. Pt reports symptoms began last week on when she experienced headache, body aches, fever, chills, and a ?stuffy head?. Over the weekend pt developed migraines, bilateral ear pain, nausea, vomiting, and some diarrhea. Patient's highest temperature was a reported 104.7 at home. Pt took Tylenol and Motrin. On Tuesday pt presented to urgent care after symptoms continue to worsen and was diagnosed with pneumonia and bilateral otitis externa, and was started on azithromycin, cefpodoxime, and ciprofloxacin otic drops. Pt began taking p.o. antibiotics, but did not yet start ear drops. Despite being on antibiotics patient's symptoms worsened with increased SOB, nausea, and left-sided chest pain associated with breathing and cough, which prompted her visit to the ED. pt has had reduced p.o. intake during this time. Has a hx of vaping and smoking marijuana, but denies alcohol use or IVDU. Pt also states has not had a seizure since 2007, and is no longer on any medications In the ED pt with mildly elevated temp 99.5 and soft BP as low as 95/55. Labs were significant for normocytic anemia of 11.3/33.7, potassium 2.8, magnesium 1.7, AST 193, ALT 292, and alk-phos 271. No leukocytosis. Lactic acid WNL at 1.7. UA negative for UTI. Tested negative for flu, COVID, RSV. CXR showed left lung upper lobe and lingular consolidation likely pneumonia. RUQ abdominal U/S showed mild call bladder wall thickening without sonographic [place]'s and no gal lstone identified. Also showed benign hepatic hemangioma. EKG demonstrated normal sinus rhythm without evidence of significant ST elevations or depressions. Pt was treated with ondansetron, acetaminophen, ketorolac, hydromorphone, Mag sulfate, IVF, ceftriaxone, azithromycin, and levofloxacin. Pt will be admitted to the hospital for treatment and further evaluation of community-acquired pneumonia that failed outpatient therapy and requires IV antibiotics. hospital course: Patient was admitted for pneumonia. Treated with levofloxacin and had improvement. Will be discharged on 7 more days, pcr came back positive for mycoplasma pneumonia. Noted initially to proteinuria but repeat urine was negative. For acute hypokalemia and acute hypomagnesemia received replacement. Patient noted to have transaminitis, likely related to acute illness, had no right upper quadrant tenderness cholecystitis unlikely, should follow-up labs in 2 weeks and if still elevated pursue further workup. For acute left otitis media treated with Levaquin and should follow up with ENT if symptoms persist. For history of seizure disorder patient is no longer on meds. Patient is feeling better will be discharged home. Time Attestation Discharge Coordination Time (in mins): 33 Quality: Safe Use of Opioids Does Pt have an Active Cancer Diagnosis on the Problem List?: No Quality: Stroke Does the patient have a stroke diagnosis?: No Physical Exam Vital Signs: Vital Signs: Last Vital Signs Temp 97.4 F 11/05/24 07:27 Pulse 73 11/05/24 07:27 Resp 16 11/05/24 07:27 BP 94/70 11/05/24 07:27 Pulse Ox 96 11/05/24 07:27 O2 Del Method Room Air 11/05/24 07:27 BMI result Body Mass Index 20.8 General: AO X 3, no acute distress Resp: CTA bilateral, no accessory muscles used CVS: S1,S2,RRR GI: soft, non tender, non distended Neuro: motor grossly intact, alert Psych: appropriate affect, appropriate insight DS: Data Data Completed and Pending Labs on day of discharge: Laboratory Results - last 24 hr 11/04/24 11/04/24 11/05/24 11:25 11:38 06:05 WBC 4.6 L RBC 3.58 L Hgb 11.5 L Hct 34.2 L MCV 95.5 MCH 32.1 MCHC 33.6 RDW 12.8 Plt Count 311 MPV 9.6 Absolute Nucleated RBC 0.000 Nucleated RBC % (auto) 0.0 Sodium 141 Potassium 3.8 D Chloride 106 Carbon Dioxide 27 Anion Gap 12 BUN 6 L Creatinine 0.50 Estim Creat Clear Calc 112.8 Estimated GFR > 60 Random Glucose 54 L* Estimat Average Glucose 103 Hemoglobin A1c % 5.2 Calcium 8.1 L Total Bilirubin 0.2 Direct Bilirubin < 0.2 AST 84 H ALT 164 H Alkaline Phosphatase 191 H Total Protein 5.3 L Albumin 2.8 L TSH 2.25 U Random Total Protein < 7 Urine Creatinine 31.31 Respiratory Panel Herring See Note Adenovirus (Rapid PCR) Not Detected B.pert (TEM-PCR) Not Detected B.parapertussis DNA PCR Not Detected C. pneumoniae DNA (PCR) Not Detected Coronavirus OC43 (PCR) Not Detected Coronavirus HKU1 (PCR) Not Detected Coronavirus 229E (PCR) Not Detected Coronavirus NL63 (PCR) Not Detected Human Metapneumovir PCR Not Detected Influenza A (RT-PCR) Not Detected Influenza B (RT-PCR) Not Detected M. pneumoniae (PCR) Detected A Parainfluenza 1 (PCR) Not Detected Parainfluenza 2 (PCR) Not Detected Parainfluenza 3 (PCR) Not Detected Parainfluenza 4 (PCR) Not Detected RSV (PCR) Not Detected Entero/Rhino (PCR) Not Detected SARS-CoV-2 RNA (RT-PCR) Not Detected Preliminary micro results at discharge 11/02/24 08:42 Blood Culture - Preliminary Blood - Venous No growth after 48 hours. 11/02/24 08:39 Blood Culture - Preliminary Blood - Venous No growth after 48 hours. Discharge Plan Discharge Anticipated Discharge Date/Time: 11/05/24 09:46 Patient Disposition: Home, Self-Care Discharge Diagnosis: pna, elevated liver tests, otitis media Referrals: Darell Valencia MD [Primary Care Provider] - 1 Week Dickson Marcano [Physician] - 1 Week (hearing loss) Discharge Medications: New ciprofloxacin-dexamethasone 0.3-0.1 % drops,suspension 4 drp otic (ears) Q12H 7 Days Qty: 7.5 0RF magnesium 250 mg tablet 250 mg PO DAILY 4 Days Qty: 4 0RF levofloxacin 750 mg Tablet 750 mg PO Q24H Qty: 7 0RF ondansetron 4 mg tablet,disintegrating 4 mg PO Q8H PRN (Reason: nausea) Qty: 20 0RF oxycodone 5 mg capsule 5 mg PO Q8H PRN (Reason: pain (scale score 7-10)) Qty: 10 0RF Rx Instructions: Partial Fill upon patient request. Continued doxepin 25 mg capsule 25 mg PO BEDTIME alprazolam 0.5 mg tablet 0.5 mg PO Q8H PRN (Reason: Sleep) dextroamphetamine-amphetamine 20 mg capsule,extended release 24hr 1 cap PO DAILY duloxetine 20 mg capsule,delayed release(DR/EC) 40 mg PO QAM Nuedexta 20-10 mg capsule 1 cap PO BID Discharge Orders: Discharge Order (Routine); Ordered 11/05/24 Ordered By: Dheeraj Cheema Diet: Advance to usual diet Activity on Discharge: As tolerated Stand Alone Forms: Patient Portal Discharge page Print Language: Pakistani Other Ambulatory Orders: Comprehensive Met. Panel (Routine) Timeframe: 2 Weeks Facility: [facility] - Location: Laboratory Ordered By: Dheeraj Cheema Activity Restrictions/Additional Instructions: Care Plan Goals: Recovery Health Concerns: mycoplasma Pneumonia, elevated liver function tests, otitis media with hearing loss Plan of Treatment: 7 more days of levofloxacin, repeat liver tests in 1-2 weeks, follow up with ENT for hearing issues Assessment: See above Patient Instructions: Otitis Externa (ED), Ear Infection (ED), Pneumonia (ED)
--- NOTE | 2024-11-05 10:28 | MHC.CM.PN ---
PT MEDICALLY CLEARED FOR DC HOME SELF-CARE, PT TO ARRANGE TRANSPORT
[2024-11-05 11:36] VITALS: BP 102/56; PULSE 98; RESP 16; TEMP 36.7; O2SAT 98
[2024-11-06 18:13] LABS: Legionella Pneumophila Ab IgM <1:256 TITER
[2024-11-07 07:24] LABS: Legionella Ag Urine Not Detected (Not Detected)
== END 2024-11-05 12:27 | disposition home or self-care (01) | DRG 139 ==
LOC: HO.ED 11-02 08:40 → HO.EDOVER 11-02 13:11 → HO.IMC 11-02 19:58
PROVIDERS: Emergency Medicine; Admitting Provider Student in an Organized Health Care Education/Training Program; Emergency Provider Emergency Medicine Emergency Medical Services; PCP Internal Medicine; Visit Provider Internal Medicine
DX: J18.9 Pneumonia, unspecified organism (principal); B96.0 Mycoplasma pneumoniae [M. pneumoniae] as the cause of diseases classified elsewhere; E83.42 Hypomagnesemia; E87.6 Hypokalemia; G40.909 Epilepsy, unspecified, not intractable, without status epilepticus; H66.92 Otitis media, unspecified, left ear; Z20.822 Contact with and (suspected) exposure to COVID-19; Z87.891 Personal history of nicotine dependence; Z79.899 Other long term (current) drug therapy
CPT/HCPCS: 0241U; 36415; 71046; 76705; 80048; 80053; 80076; 81001; 82248; 82570; 83036; 83605; 83735; 84156; 84443; 85025; 85027; 86713; 87040; 87449; 87633; 93005; 99285; J0131; J0696; J1171; J1200; J1885; J1956; J2405; J2765; J3475; J3480; J7120

== ENCOUNTER → 2024-11-01 23:01 | Outpatient (BNV) | payer MEDICAID, SELFPAY | PROVIDERS: Emergency Provider Emergency Medicine; PCP Internal Medicine; Visit Provider Radiology Diagnostic Radiology | DX: R05.9 Cough, unspecified (principal); R50.9 Fever, unspecified | CPT/HCPCS: 71046 ==

== ENCOUNTER → 2024-11-01 23:03 | Outpatient (BNV) | payer MEDICAID, SELFPAY | PROVIDERS: Admitting Provider Student in an Organized Health Care Education/Training Program; Emergency Provider Emergency Medicine Emergency Medical Services; PCP Internal Medicine; Visit Provider Internal Medicine Cardiovascular Disease | DX: R07.9 Chest pain, unspecified (principal) | CPT/HCPCS: 93010 ==

== ENCOUNTER → 2024-11-02 03:45 | Outpatient (BNV) | payer MEDICAID, SELFPAY | PROVIDERS: Admitting Provider Student in an Organized Health Care Education/Training Program; Emergency Provider Emergency Medicine Emergency Medical Services; PCP Internal Medicine; Visit Provider Internal Medicine Cardiovascular Disease | DX: R07.9 Chest pain, unspecified (principal); E87.6 Hypokalemia | CPT/HCPCS: 93010 ==

== ENCOUNTER → 2024-11-02 08:24 | Outpatient (BNV) | payer MEDICAID, SELFPAY | PROVIDERS: Emergency Provider Emergency Medicine Emergency Medical Services; PCP Internal Medicine; Visit Provider Radiology Vascular & Interventional Radiology | DX: D18.03 Hemangioma of intra-abdominal structures (principal) | CPT/HCPCS: 76705 ==

== ENCOUNTER → 2024-11-02 13:11 | Outpatient (BNV) | payer MEDICAID, SELFPAY | PROVIDERS: Admitting Provider Student in an Organized Health Care Education/Training Program; Emergency Provider Emergency Medicine Emergency Medical Services; PCP Internal Medicine; Visit Provider Student in an Organized Health Care Education/Training Program | DX: R79.89 Other specified abnormal findings of blood chemistry (principal) | CPT/HCPCS: 99222; 99232; 99239 ==